=== PATIENT | female | born 1965 | race Caucasian/White ===

== ENCOUNTER 2016-08-09 14:05 | Emergency (ER) | payer OTHER ==
[2016-08-09 15:02] VITALS: BP 133/73
--- NOTE | 2016-08-09 15:23 | UC ---
Head Injury HPI - HPI Summary HPI Summary: 50 yo female was skating 4 days ago fell and striking her occiput No LOC felt pretty good initially no with mild MARINELLI, very low energy, trouble thinking clearly (teacher adult education) no neck pain no n/v/d some disequilibrium no hx concussion - History Of Current Complaint Chief Complaint: UCHeadInjury Stated Complaint: HEAD INJURY Time Seen by Provider: 08/09/16 15:07 Hx Obtained From: Patient Hx Last Menstrual Period: irreg now 6 weeks ago? Onset/Duration: Gradual Onset Severity Currently: Mild Severity Initially: Mild Pain Intensity: 3 Pain Scale Used: 0-10 Numeric Character: Dull Aggravating Factor(s): Nothing Alleviating Factor(s): Nothing Associated Signs And Symptoms: Negative: LOC (Time In Secs./Mins/Hrs), LOC Duration Unknown, Confusion, Memory Loss, Seizure, Epistaxis, Dental Malocclusion, Neck Pain, Nausea - Allergies/Home Medications Allergies/Adverse Reactions: Allergies Allergy/AdvReac Type Severity Reaction Status Date / Time Dust Allergy Congestion Uncoded 08/09/16 15:02 PMH/Surg Hx/FS Hx/Imm Hx Previously Healthy: Yes Endocrine History Of: Denies: Diabetes - gestational diabetes, Thyroid Disease Cardiovascular History Of: Denies: Cardiac Disorders, Hypertension Respiratory History Of: Denies: COPD, Asthma GI/ History Of: Denies: Ulcer Cancer History Of: Denies: Breast Cancer - Surgical History Surgical History: Yes Surgery Procedure, Year, and Place: TUBAL LIGATION. csection x2. vascular surgery bilat legs-varicose veins - Family History Known Family History: Positive: Cardiac Disease - father, Hypertension - father , Diabetes - grnad mother - Social History Alcohol Use: Occasionally Substance Use Type: Marijuana Smoking Status (MU): Never Smoked Tobacco Review of Systems Constitutional: Fatigue Skin: Negative Eyes: Negative ENT: Negative Respiratory: Negative Cardiovascular: Negative Gastrointestinal: Negative Genitourinary: Negative Motor: Negative Neurovascular: Negative Musculoskeletal: Negative Neurological: Negative Psychological: Negative All Other Systems Reviewed And Are Negative: Yes Physical Exam Triage Information Reviewed: Yes Appearance: Well-Appearing, No Pain Distress, Well-Nourished Vital Signs: Initial Vital Signs Temp 98.9 F 08/09/16 14:59 Pulse 78 08/09/16 14:59 Resp 16 08/09/16 14:59 BP 133/73 08/09/16 14:59 Pulse Ox 100 08/09/16 14:59 Vital Signs Reviewed: Yes Eyes: Positive: Conjunctiva Clear, Other: - fundi benign ENT: Positive: Hearing grossly normal, Pharynx normal, TMs normal. Negative: Pharyngeal erythema, Nasal congestion, Nasal drainage Neck: Positive: Supple, Nontender, No Lymphadenopathy Respiratory: Positive: Lungs clear, Normal breath sounds, No respiratory distress Cardiovascular: Positive: RRR, No Murmur Musculoskeletal: Positive: ROM Intact, No Edema Neurological: Positive: Alert, Muscle Tone Normal, Other: - GCS15/15 Psychological Exam: Normal Skin Exam: Normal Head Injury Course/Dx - Differential Dx/Diagnosis Provider Diagnoses: concussion Discharge - Discharge Plan Condition: Stable Disposition: HOME Patient Education Materials: Concussion (ED), Post Concussion Syndrome (ED) Referrals: Renu Ramirez MD [Primary Care Provider] - 5 Days Additional Instructions: rest (both mental and physical)
--- NOTE | 2016-08-09 15:40 | RAD ---
HISTORY: Head injury, trauma COMPARISONS: February 09, 2014 TECHNIQUE: Multiple contiguous axial CT scans were obtained of the head without intravenous contrast. FINDINGS: HEMORRHAGE/INFARCT: There is no hemorrhage or acute infarct. MASSES/SHIFT: There is no mass or shift. EXTRA-AXIAL SPACES: There are no extra-axial fluid collections. SULCI AND VENTRICLES: The sulci and ventricles are normal in size and position for the patient's stated age. CEREBRUM: There are no focal parenchymal abnormalities. BRAINSTEM: There are no focal parenchymal abnormalities. CEREBELLUM: There are no focal parenchymal abnormalities. VESSELS: The vessels are grossly normal. PARANASAL SINUSES: The paranasal sinuses are clear. ORBITS: The orbits are unremarkable. BONES AND SOFT TISSUE: No bone or soft tissue abnormalities are noted. OTHER: None IMPRESSION: NO ACUTE INTRACRANIAL PATHOLOGY.
== END 2016-08-09 16:13 | disposition home or self-care (01) ==
LOC: UCEAST 14:05
DX: S06.0X0A Concussion without loss of consciousness, initial encounter (principal); V00.211A Fall from ice-skates, initial encounter; Y93.21 Activity, ice skating; Y92.330 Ice skating rink (indoor) (outdoor) as the place of occurrence of the external cause; F12.90 Cannabis use, unspecified, uncomplicated
CPT/HCPCS: 70450; 99211; G0463

== ENCOUNTER 2018-10-03 16:35 | Emergency (ER) | payer OTHER ==
--- OUTSIDE RECORDS SUMMARY | 2018-10-03 16:40 | XMS REPORT | Continuity of Care Document ---
:1965 External Reference #:[id number] Author Name Sadie Akua Care Team Providers Name Role Phone Meagan Shetty MD Primary Care Physician Unavailable Payers Date Identification Numbers Payment Provider Subscriber Policy Number: [id number] [employer] Number: [id number] [address] PayID: [id number] [place] [address] Advance Directives Description No Information Available Problems Date Description Provider Status Onset: 07/28/2015 Atypical chest pain Kathy Light MD, [facility], [facility] Active Onset: 08/26/2017 Aortic valve disorder Kathy Light MD, [facility], [facility] Active Family History Date Family Member(s) Observation Comments General Diabetes Type II Paternal grandmother : (age Father due to multiple 81 Years) myeloma Father Hypertension Father Heart Murmur Father Multiple Myeloma Father Cancer : (age Mother due to Ra 69 Years) Mother Rheumatoid Arthritis Mother Uterine Cancer Siblings 3 1/2 sisters alive and well 2018 First Sister Breast Cancer Maternal Grandfather Obesity Maternal Grandfather Diabetes Maternal Grandmother Osteoarthritis Social History Type Date Description Comments Sex Unknown Marital Status Lives With Lives With Children 9 and 11; 2018 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 Tobacco Use Start: Unknown End: Patient is a former smoked off and on Unknown smoker for 15yrs stopped age 29 Exercise Type/Frequency Exercises regularly 4-5hrs per week, body pump and walking Allergies, Adverse Reactions, Alerts Description No Known Drug Allergies Medications Medication Date Status Form Strength Qnty SIG Indications Ordering Provider Fluoxetine HCL Active Tablets 10mg 1 by mouth Unknown 000 every day Adderall ER Active Tablets 10mg 1 by mouth Unknown 000 po daily ( started August 05 2017) Alprazolam Active Tablets 0.5mg 1/2 to one Unknown 000 by mouth daily as needed for anxiety (Rare use) Valacyclovir Active Tablets 500mg 1 by mouth Unknown HCL 000 every day Tizanidine HCL Active Capsules 4mg prn for jaw Unknown 000 pain Bentyl Active Capsules 10mg one capsule Unknown 000 two to three times a day as needed for cramping [place] III Active Capsules 1000mg Unknown Epa+Dha 000 B-Centered Active Take 2 Unknown Supplement 000 tablets by mouth daily. Zinc 5MG Active Unknown 000 Ferrous Sulfate Active Tablets 27mg Take two Unknown 000 tablets by mouth daily. Melatonin Active Capsules 10mg 1 tab by Unknown 000 mouth at bedtime as needed for insomnia Alprazolam Hx Tablets 0.25mg as needed Unknown 000 - 018 Immunizations Description No Information Available Vital Signs Date Vital Result Comment 09/15/2018 8:19am Height 68.3 inches 5'8.30" Weight 162.50 lb Heart Rate 92 /min BP Systolic 111 mmHg BP Diastolic 78 mmHg Body Temperature 97.3 F O2 % BldC Oximetry 97 % BMI (Body Mass Index) 24.5 kg/m2 04/01/2018 2:19pm Height 69 inches 5'9" Weight 163.50 lb Heart Rate 88 /min BP Systolic 142 mmHg left arm BP Diastolic 80 mmHg left arm BP Systolic Sitting 114 mmHg la repeat sitting BP Diastolic Sitting 60 mmHg la repeat sitting BMI (Body Mass Index) 24.1 kg/m2 Ejection Fraction 55-60% 08/14/2017 Echocardiogram 08/26/2017 8:37am Height 69 inches 5'9" Weight 159.12 lb with out shoes Heart Rate 70 /min BP Systolic Sitting 138 mmHg Lue reg cuff BP Diastolic Sitting 80 mmHg Lue reg cuff BP Systolic Standing 124 mmHg Lue reg cuff BP Diastolic Standing 80 mmHg Lue reg cuff Respiratory Rate 17 /min BMI (Body Mass Index) 23.5 kg/m2 Ejection Fraction 55-60% date 08/14/17 ECHO 08/15/2015 8:14am Height 69 inches 5'9" Weight 161.00 lb Heart Rate 80 /min 92 BP Systolic Sitting 122 mmHg right arm, reg cuff BP Diastolic Sitting 72 mmHg right arm, reg cuff BP Systolic Standing 108 mmHg right arm, reg cuff BP Diastolic Standing 72 mmHg right arm, reg cuff BMI (Body Mass Index) 23.8 kg/m2 Ejection Fraction 55-60% 08/12/15 07/28/2015 1:05pm Height 69 inches 5'9" Weight 163.00 lb Heart Rate 80 /min 88 BP Systolic 112 mmHg left arm, reg cuff BP Diastolic 72 mmHg left arm, reg cuff BP Systolic Sitting 116 mmHg right arm, reg cuff BP Diastolic Sitting 80 mmHg right arm, reg cuff BP Systolic Standing 110 mmHg right arm, reg cuff BP Diastolic Standing 80 mmHg right arm, reg cuff Respiratory Rate 20 /min BMI (Body Mass Index) 24.1 kg/m2 Results Description No Information Available Procedures Date Code Description Status 07/16/2018 40660 ECHO Stress Test Incl Perf Contiuous ekg Monitoring Completed W/Phys Superv 05/05/2018 09288 ECHO Transthoracic, Real-Time 2D With Doppler And Color Completed Flow 05/05/2018 23724 ECHO Transthoracic, Real-Time 2D With Doppler And Color Completed Flow 04/01/2018 70139 EKG Tracing & Interpretation Completed 10/01/2017 20381802 Mammogram Completed 08/26/2017 29855 EKG Tracing & Interpretation Completed 08/14/2017 30544 ECHO Transthorasic Realtime 2D W Doppler & Color Flow Completed Hosp 05/07/2017 38143824 Colonoscopy Completed 08/12/2015 70990 ECHO Transthorasic Realtime 2D W Doppler & Color Flow Completed Hosp 08/12/2015 44555 ECHO Transthorasic Realtime 2D W Doppler & Color Flow Completed Hosp 07/28/2015 37651 EKG Tracing & Interpretation Completed Encounters Type Date Location Provider Dx Diagnosis Office Visit 04/01/2018 [facility] Brannon Panchal I35.1 Nonrheumatic aortic 2:20p Daniel Rasmussen (valve) insufficiency R07.9 Chest pain, unspecified R06.00 Dyspnea, unspecified Office Visit 08/26/2017 8:40a [facility] Kathy Hyman. I35.1 Nonrheumatic aortic [facility] MD Kuldeep, [facility]valve[facility] Visit 08/15/2015 8:20a [facility] Kathy Rivero I35.1 Nonrheumatic aortic Of [facility] AT [facility] MD Kuldeep, (valve) FAC, [facility] insufficiency Office Visit 07/28/2015 1:00p [facility] Kathy Rivero R07.9 Chest pain, Of [facility] Kuldeep, unspecified [facility] R00.2 Palpitations I35.1 Nonrheumatic aortic (valve) insufficiency Plan of Treatment Future Appointment(s):10/16/2018 9:30 am - SAMMY Woodson at [facility]09/15/2018 - Clarissa Benitez, PAN95.9 Unspecified menopausal and perimenopausal disorderNew Labs:Estradiol, Ordered: 09/15/18Dhea Sulfate, Ordered: 09/15/18Progesterone, Ordered: 09/15/18Vitamin D Total 25(Oh) , Ordered: 09/15/18Testosterone Free & Total, Ordered: 09/15/18Follow up:1 monthRecommendations:I will call in a script for hormones after I see your lab work. sign up for nbsqucB44.1 Irritable bowel syndrome with constipationNew Labs :Zinc Serum, Ordered: 09/15/18Copper, Serum, Ordered: 09/15/18Vitamin B12 And Folate Serum, Ordered: 09/15/18Recommendations:please do a 3 day food diary off probiotics for 2 weeks then do the CDSA test see me in 1 htlmcV98.0 Attention- deficit hyperactivity disorder, predominantly inatR68.82 Decreased iactkwB30.9 Hyperglycemia, unspecifiedNew Labs:Hemoglobin A1c (Glyco HGB), Ordered: E78.5 Hyperlipidemia, unspecifiedNew Labs:Lipid Profile (Trig/Chol/HDL), Ordered: 09/15/18Homocysteine, Ordered: 09/15/18CRP High Sensitivity, Ordered: 09/15/18
--- NOTE | 2018-10-03 18:46 | UC ---
General HPI - HPI Summary HPI Summary: Pleasant 53 yo female c/o several days chest congestion head congestion, feels wheezing in chest, naomi when lying down. Fever? no chills. Symptoms getting worse, not better. No sob perse, but is aware of her breathing. No GI issues. Some head congestion. - History of Current Complaint Chief Complaint: UCGeneralIllness Stated Complaint: CONGESTED Time Seen by Provider: 10/03/18 18:45 Hx Obtained From: Patient Hx Last Menstrual Period: na Pain Intensity: 6 - Allergy/Home Medications Allergies/Adverse Reactions: Allergies Allergy/AdvReac Type Severity Reaction Status Date / Time Dust Allergy Congestion Uncoded 10/03/18 17:11 Home Medications: Home Medications Dextroamphetamine/Amphetamine [Adderall Xr 10 mg Capsule] 10 mg PO DAILY WITH MEAL 10/03/18 [History Confirmed 10/03/18] PMH/Surg Hx/FS Hx/Imm Hx Previously Healthy: No - see below - Surgical History Surgical History: Yes Surgery Procedure, Year, and Place: TUBAL LIGATION. csection x2. vascular surgery bilat legs-varicose veins - Family History Known Family History: Positive: Cardiac Disease - father, Hypertension - father , Diabetes - grnad mother - Social History Alcohol Use: Occasionally Substance Use Type: Marijuana Smoking Status (MU): Former Smoker Review of Systems All Other Systems Reviewed And Are Negative: Yes Constitutional: Positive: Other - see hpi Skin: Positive: Other - see hpi Eyes: Positive: Other - see hpi ENT: Positive: Other - see hpi Respiratory: Positive: Other - see hpi Cardiovascular: Positive: Other - see hpi Gastrointestinal: Positive: Negative Genitourinary: Positive: Negative Motor: Positive: Negative Neurovascular: Positive: Negative Musculoskeletal: Positive: Negative Neurological: Positive: Negative Psychological: Positive: Negative Is Patient Immunocompromised?: No Physical Exam Triage Information Reviewed: Yes Appearance: Well-Nourished - sitting up, conversing in full sentances. Looks tired but nad. Vital Signs: Initial Vital Signs Temp 98.9 F 10/03/18 17:07 Pulse 83 10/03/18 17:07 Resp 18 10/03/18 17:07 BP 133/80 10/03/18 17:07 Pulse Ox 100 10/03/18 17:07 Vital Signs Reviewed: Yes Eye Exam: Normal ENT: Positive: Pharyngeal erythema - mild post pharyng redness, c/w cough, TM dull Neck exam: Normal Neck: Positive: Supple, Nontender Respiratory Exam: Other - + scattered rhonchi, mild exp wheeze. Adventitious sounds more prominent R chest. BS full bilat. Respiratory: Positive: No respiratory distress, No accessory muscle use Cardiovascular Exam: Normal Cardiovascular: Positive: RRR, Pulses Normal, Brisk Capillary Refill Abdominal Exam: Normal Abdomen Description: Positive: Nontender Musculoskeletal Exam: Normal - gait steady, moves x ext's Neurological Exam: Normal Psychological Exam: Normal Skin Exam: Normal - no visible or reported Course/Dx - Course Course Of Treatment: Reviewed coa / tx plan. Questions answered as posed. She will consider cxr if worse or new better. Encourage resp check pcp this week if possible. - Diagnoses Provider Diagnosis: Wheezing, Bronchitis Discharge - Sign-Out/Discharge Documenting (check all that apply): Patient Departure All imaging exams completed and their final reports reviewed: No Studies - Discharge Plan Condition: Stable Disposition: HOME Prescriptions: Albuterol HFA INHALER* [Ventolin HFA Inhaler*] 1 - 2 puff INH Q4H PRN #1 mdi PRN Reason: Wheezing Benzonatate CAP* [Tessalon 100 MG CAP*] 100 mg PO TID #30 cap DOXYcycline CAP(*) [DOXYcycline 100MG CAP(*)] 100 mg PO BID #20 cap Patient Education Materials: Acute Bronchitis (ED), Wheezing (ED) Referrals: No Primary Care Phys,NOPCP [Primary Care Provider] - Additional Instructions: Call your primary care physician on Saturday to schedule follow up for 1-2 weeks. Seek medical attention for worse or new problems in the meantime. Drink plenty of fluids. Avoid prolonged sun exposure while taking doxycycline. - Billing Disposition and Condition Condition: STABLE Disposition: Home
[2018-10-03] MEDS ORDERED: Albuterol HFA INHALER* 8 gm MDI INH ONE (19:13)
[2018-10-03 19:31] VITALS: BP 130/76
== END 2018-10-03 19:24 | disposition home or self-care (01) ==
LOC: UCEAST 16:35
DX: J40 Bronchitis, not specified as acute or chronic (principal); R06.2 Wheezing; Z91.09 Other allergy status, other than to drugs and biological substances; Z87.891 Personal history of nicotine dependence
CPT/HCPCS: 99212; A9270-GY; G0463